=== PATIENT | male | born 1980 | race Caucasian/White ===

== ENCOUNTER 2025-02-28 12:53 | Outpatient (CLI) | payer BC ==
--- NOTE | 2025-03-01 03:21 | CONSULTATION ---
DATE OF CONSULTATION: 02/28/2025 DICTATING PHYSICIAN: Tamra Gupta M.S., [facility]-[employer] MODIFIED BARIUM SWALLOW STUDY REPORT REFERRING PHYSICIAN: Uri Hwang NP HISTORY OF PRESENT ILLNESS: The patient is a 44-year-old male and consents to this evaluation. History was obtained from the patient and medical records. The patient reports that he has had reflux that was diagnosed when he was in his 20s. Since that time, he has been on various medications, including omeprazole and Tums with the most recent medication being pantoprazole 40 mg twice daily orally. He has had various different endoscopies done. His endoscopy with Dr. Madison led to a diagnosis of gastroparesis. The patient has reported that in the last 9 months his swallowing has gotten worse over time. He was seen by a CT surgeon by the name of Dr. 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 He has been referred to Dr. Carson at [facility] in [place] for a Benitez at the end of the month. He has stopped his pantoprazole for this upcoming procedure and has noticed that some of his symptoms have improved including feeling the pressure on his chest. The patient has trialed various different strategies for reflux. He elevates the head of his bed at night and follows a reflux diet. He has tried going gluten and dairy-free for 6 weeks with no changes in symptoms. The patient notes no coughing when he is eating and drinking. However, it does feel as if with food items such as steak or chicken that occasionally he will swallow them wrong and they will feel slightly stuck. The patient noticed that in the last 6 months his tongue feels as if it is burning. CURRENT DIET: The patient tries to limit his caffeine intake with very rarely having any coffee or tea. He does not utilize tobacco products or drink alcohol. He does not consume chocolate. He does not have milk, but will occasionally have cheese or sour cream in his meals. 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 He does not snack in the afternoon. Dinner is at 5:40 p.m. and maybe chicken and rice. He tries to stay away from items such as red sauce. He does not have dessert and he goes to bed at 9:30 p.m. MEDICATIONS: None. PARAMETERS: The patient is seated in a lateral 90-degree view and administered the usual protocol of thin and nectar-thick liquids, puree and solid consistencies, as well as self-regulated boluses of thin liquids from the cup. RESULTS: The patient is adequately able to propel the bolus from the anterior to posterior oral cavity, there does not appear to be any difficulty with strength or range of motion of the tongue and there is no oral residue noted after the tail of the bolus passes. In the pharyngeal stage of the swallow, tongue base retraction is within functional limits. Swallow initiation is within functional limits. There is moderately decreased anterior movement of the hyoid and mildly decreased superior movement of the hyoid with a moderately decreased epiglottic inversion. Due to this decrease, there is a mild pharyngeal residue at the level of the vallecula. At no time is the patient noted to penetrate or aspirate on any of the bolus sizes or consistencies. ANTERIOR-POSTERIOR VIEW: In the AP plane, the bolus split symmetrically between the piriform sinuses. There was slowed, but no proximal movement of the boluses. IMPRESSION: The patient demonstrates what appears to be a [id number]-frdplsve pharyngoesophageal stage swallowing disorder characterized by decreased anterior and superior movement of the hyoid and decreased epiglottic inversion. DIAGNOSES: R13.14, dysphagia pharyngoesophageal phase; K21.9, gastroesophageal reflux disease. PATIENT EDUCATION: Immediately following modified barium swallow study, the patient was able to view the results. The patient was able to see how the current status of the swallowing mechanism decreases his ability to swallow normally. The patient was educated on the Josselyn maneuver exercise as well as a manual therapy stretch under the sternocleidomastoid at the level of the larynx to assist with some of the excess tension that he feels in his neck due to leaning his neck forward throughout the day for surgeries. The patient was educated on an option for swallowing therapy should he have any difficulty with these recommended exercises and stretches and indicated that he may be reaching out to this clinician to schedule an appointment. RECOMMENDATIONS: It is recommended that the patient complete the recommended exercises and manual therapy stretches. Should the patient have any questions, he may reach out to this clinician to begin swallowing therapy 1 time weekly for 12 weeks. LONG-TERM GOALS: The patient will maintain adequate hydration/nutrition with optimum safety and efficiency of swallow function on p.o. intake without overt signs and symptoms of aspiration for the highest possible diet level. PROGNOSIS: Prognosis for the patient is good in terms of patient motivation and willingness to learn. FUNCTIONAL ORAL INTAKE: The FOIS was administered to establish and document a change in the functional eating activities of this patient over time. This is a 7-point scale with 1 indicating no oral intake and totally tube dependent, and 7 indicating total oral intake with no restrictions. This patient received a 6, which indicates total oral diet with multiple consistencies without special preparation, but with specific food limitations and precautions. G-CODE: [id number]. Thank you very much for asking me to participate in the care of this kind patient. Should you have any questions regarding this evaluation or recommendations, please do not hesitate to contact me at [phone]. During this examination, 2.24 minutes of fluoroscopy time and 15.43 CAK mGy were utilized. Tamra Gupta M.S., [facility] TID: [id number] RECEIPT: [id number] DAVIE FERGUSON
== END 2025-02-28 23:59 | disposition home or self-care (01) ==
LOC: RAD 12:53
PROVIDERS: ATTEND Nurse Practitioner Family
DX: R13.14 Dysphagia, pharyngoesophageal phase (principal); K21.9 Gastro-esophageal reflux disease without esophagitis
CPT/HCPCS: 74230